=== PATIENT | female | born 1955 | race Caucasian/White ===

== ENCOUNTER 2017-03-24 12:54 | Outpatient (CLI) | payer MEDICARE ==
--- NOTE | 2017-03-24 13:59 | RAD ---
FOUR VIEWS CERVICAL SPINE: HISTORY: Cervical radiculopathy. Follow-up surgery from . TECHNIQUE: AP, lateral, Swimmer's, and open-mouth odontoid views of the cervical spine. FINDINGS: Four views of the cervical spine demonstrate ACDF with anterior fusion at the C5-C6 level. Plates a nd screws are in good position. The patient has had previous C4-C5 cervical spine fusion. There is mild anterolisthesis of C3 on C4. The patient has had previous facial trauma and surgical hardware in place. No evidence of acute cervical spine fractures or bony lesions seen. IMPRESSION: Anterior cervical diskectomy and fusion of the C5-C6 level. The patient has had previous C4-C5 fusi on. No other acute abnormalities seen. POS: MANUEL
== END 2017-03-24 12:55 | disposition home or self-care (01) ==
LOC: TBSIIMAG 12:54
PROVIDERS: ATTEND Surgery
DX: M54.12 Radiculopathy, cervical region (principal); Z98.890 Other specified postprocedural states
CPT/HCPCS: 72040

== ENCOUNTER 2017-04-15 05:22 | Day surgery (SDC) | payer MEDICARE ==
[2017-04-14 12:18] VITALS: BMI 32.9
[2017-04-15] MEDS ORDERED: Bacitracin Zinc Ointment 30 gm TUBE ONE (06:24)
[2017-04-15] MEDS ORDERED: Thrombin 5000 UNITS/5 ML VIAL ONE (06:24)
[2017-04-15] MEDS ORDERED: Sodium Chloride 0.9% 10 ML ONE (06:24)
[2017-04-15] MEDS ORDERED: CEFAZOLIN/Water 2 GM/20 ML SYRINGE ONE (06:37)
[2017-04-15 07:23] LABS: Prothrombin Time 13.9 SEC (12.0-14.7)
[2017-04-15 07:28] LABS: Mean Platelet Volume 8.5 fL (7.4-10.4); Red Blood Cell (RBC) Count 4.99 mill/uL (4.20-5.40)
[2017-04-15] MEDS ORDERED: Fentanyl 250 MCG/5 ML VIAL ONE (07:30)
[2017-04-15 07:37] LABS: Anion Gap 10 mmol/L (10-20); BUN (Urea Nitrogen) 15 mg/dL (9.8-20.1); Calc. Creatinine Clearance 78 mL/min (70-130); Calcium 9.6 mg/dL (7.8-10.44); Carbon Dioxide 27 mmol/L (23-31); Chloride 105 mmol/L (98-107); Estimated GFR-MDRD 58
[2017-04-15] MEDS ORDERED: Ketorolac Tromethamine 30 MG/ML VIAL ONE (07:37)
[2017-04-15] MEDS ORDERED: Propofol 200 MG/20 ML VIAL ONE (07:37)
[2017-04-15] MEDS ORDERED: Dexamethasone 20 MG/5 ML VIAL ONE (07:37)
[2017-04-15] MEDS ORDERED: PHENYLEPHRINE-NS 100 MCG/ML 10 ML SYRINGE ONE (07:37)
[2017-04-15] MEDS ORDERED: Succinylcholine Chloride 20 MG/ML 10 ml SYRINGE FS ONE (07:37)
[2017-04-15] MEDS ORDERED: Ondansetron HCl/PF 4 MG/2 ML Vial ONE (07:37)
[2017-04-15] MEDS ORDERED: Fleet Enema 133 ML BOT PR PRN (10:01)
[2017-04-15] MEDS ORDERED: Acetaminophen 325 MG TAB PO PRN (10:01)
[2017-04-15] MEDS ORDERED: Acetaminophen/Codeine 30-300mg Tablet PO PRN (10:01)
[2017-04-15] MEDS ORDERED: Milk Of Magnesia 30 ML UDCUP PO PRN (10:01)
[2017-04-15] MEDS ORDERED: Mag-Al 1200 mg/1200 mg/30 ML UDCUP PO PRN (10:01)
[2017-04-15] MEDS ORDERED: Bisacodyl 10 MG SUPP PR PRN (10:01)
[2017-04-15] MEDS ORDERED: Ondansetron HCl/PF 8 MG in Sodium Chloride 0.9% 50 ML IVPB PRN (10:03)
[2017-04-15] MEDS ORDERED: Promethazine HCl 25 MG/ML VIAL IM/IV PRN (10:06)
[2017-04-15] MEDS ORDERED: Promethazine HCl 25 MG/ML VIAL IM PRN (10:10)
[2017-04-15] MEDS ORDERED: Ondansetron HCl/PF 4 MG/2 ML Vial IVP PRN (10:10)
[2017-04-15] MEDS ORDERED: Promethazine HCl 25 MG/ML VIAL SLOW IVP PRN (10:10)
[2017-04-15] MEDS ORDERED: Fentanyl 100 MCG/2 ML VIAL ONE (10:33)
--- NOTE | 2017-04-15 11:33 | OP ---
DATE OF PROCEDURE: 04/15/2017 SURGEON: Franklyn Parkinson M.D. PET CARE ASSOCIATE: Mihai Valderrama PA-C. 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 PROCEDURE: 1. L3-L4 laminectomy, partial facetectomy, and foraminotomies, L3-L4 nerve roots. 2. Bilateral revision hemilaminotomies to decompress the L4-L5 nerve roots with history of prior la minectomy, but with recurrence of stenosis in the L4-L5 segment. 3. A modified 50 should be added to this case as this was a bilateral procedure at the L4-L5 segmen t with a history of prior surgery at that segment. PROCEDURE: After informed consent was obtained from the patient, the patient brought to OR 11. Pro per patient pause and identification was carried out. She was placed under excellent general endotr acheal anesthesia and positioned prone on the operating table. All appropriate points were padded. We identified the L3, L4 segment and the L4-L5 segments of the prior hardware. This area was steri bryant cleansed, prepared, and draped. Proper patient pause and identification was carried out. The prior midline wound was identified and this area was sterilely cleansed, prepared, and draped. Prop er patient pause and identification was carried out. The wound was then opened with a combination o f sharp, monopolar and blunt dissection. We proceeded over the L3-L4 segments and the L4-L5 segment s and identified the hardware. Localization film confirmed our area of interest. We then performed an L3-L4 laminectomy and bilateral revision hemilaminotomies at the L4-L5 segment. As expected, we encountered exuberant scar tissue in the L4-L5 segments. We achieved satisfactory decompression of the L3, L4, and L5, but I was pleased with our decompression of L3, L4 and L5. There was no spinal fluid leak. Hemostasis was maximized throughout. The wound was then closed in anatomic layers fol lowing the sprinkling of vancomycin powder. The patient then emerged from anesthesia.
[2017-04-15] MEDS: Sodium Chloride 0.9% 1,000 ML IV SCH ×2 (11:43→23:47)
[2017-04-15] MEDS: HYDROcodone/Acetaminophen 7.5/325 mg Tablet PO PRN ×3 (12:28→22:16)
[2017-04-15] MEDS: tiZANidine HCl 4 MG TAB PO PRN ×2 (12:28→20:21)
[2017-04-15] MEDS: CEFAZOLIN/Water 2 GM/20 ML SYRINGE SLOW IVP SCH ×2 (15:53→23:48)
[2017-04-15] MEDS ORDERED: Atorvastatin Calcium 20 MG TAB PO SCH ×2 (21:00)
[2017-04-16] MEDS: traMADol HCl 50 MG TAB PO PRN ×2 (01:39→08:33)
[2017-04-16] MEDS: HYDROcodone/Acetaminophen 7.5/325 mg Tablet PO PRN ×2 (02:28→07:01)
[2017-04-16] MEDS: tiZANidine HCl 4 MG TAB PO PRN ×2 (03:10→10:06)
[2017-04-16] MEDS ORDERED: Levothyroxine Sodium 88 MCG TAB PO SCH ×2 (06:00→09:00)
[2017-04-16 07:54] VITALS: BP 105/71; TEMP 98.4
[2017-04-16] MEDS ORDERED: Lisinopril 20 MG TAB PO SCH ×2 (09:00)
[2017-04-16] MEDS ORDERED: Gabapentin 100 MG CAP PO SCH (09:00)
[2017-04-16] MEDS ORDERED: Citalopram 20 MG TAB PO SCH ×2 (09:00)
[2017-04-16] MEDS ORDERED: Bupropion 150 MG XL TAB PO SCH ×2 (09:00)
--- NOTE | 2017-04-16 09:12 | PRG ---
DATE OF SERVICE: 04/16/2017 Ms. Valdez is postoperative day 1 from L3-L4, L4-L5 decompression. She is doing well. She has pain i nto her hips, although she states this improves with ambulation. She does not have the right greate r than left leg pain that she had preoperatively. She has good strength in her lower extremity. Sh arben is mobilizing. She has met criteria for dismissal and we went over both intra and postoperative i ssues.
== END 2017-04-16 11:00 | disposition home or self-care (01) ==
LOC: SDC 05:22 → SJJU 10:01 → SDC 04-16 11:00
PROVIDERS: ATTEND Surgery
PROC: 00NY0ZZ Release Lumbar Spinal Cord, Open Approach (ICD-10-PCS; principal; 2017-04-15)
DX: M48.061 Spinal stenosis, lumbar region without neurogenic claudication (principal); M54.16 Radiculopathy, lumbar region; Z98.1 Arthrodesis status; Z95.5 Presence of coronary angioplasty implant and graft; Z90.49 Acquired absence of other specified parts of digestive tract
CPT/HCPCS: 76001; 80048; 85027; 85610; 85730; A4216; J1100; J1885; J2405; J2550; J2704; J3010; J3370; J3490